=== PATIENT | male | born 1980 | race Caucasian/White ===

== ENCOUNTER 2020-05-18 23:14 | Emergency (ER) | payer OTHER ==
[~2020-05-18] VITALS: Ht 195.6 cm; Wt 120.5 kg
[2020-05-18] MEDS ORDERED: TOPROL XL 25MG25 MG PO (23:28)
[2020-05-18] MEDS ORDERED: HCTZ 25MG25 MG PO (23:28)
[2020-05-18] MEDS ORDERED: FENOFIBRATE160 MG PO (23:29)
[2020-05-18] MEDS ORDERED: COZAAR100 MG PO (23:29)
[2020-05-18] MEDS ORDERED: LEADER OMEPRAZO20 MG PO (23:30)
[2020-05-19 00:21] LABS: EOS # 0.2 (0.04-0.40); EOS % 2.7 % (0.0-4.0); HEMATOCRIT 50.5 % (42.0-52.0); HEMOGLOBIN 17.1 g/dL (13.5-18.0); LYMPH# 2.1 (1.50-4.00); MEAN CELL VOLUME 87 fl (78-100); MEAN CORPUSCULAR HEMOGLOBIN 30 pg (27-31); MEAN CORPUSCULAR HGB CONC 34 g/dL (33-37); MEAN PLATELET VOLUME 11.9 fl (7.4-10.4); MONO # 0.6 (0.20-0.80); NEU # 4.8 (1.40-6.50); PLATELET COUNT 147 K/mm3 (130-400); RED CELL DISTRIBUTION WIDTH 13.3 % (11.5-14.5); WHITE BLOOD COUNT 7.8 K/mm3 (4.8-10.8)
[2020-05-19 00:22] LABS: ALBUMIN 4.7 g/dL (3.5-5.0); SODIUM 143 mmol/L (136-145)
[2020-05-19 00:23] LABS: CALCIUM 9.6 mg/dL (8.3-10.5)
[2020-05-19 00:24] LABS: GLUCOSE 120 mg/dL (75-110); TOTAL PROTEIN 6.9 g/dL (6.4-8.3)
[2020-05-19 00:25] LABS: CARBON DIOXIDE 20 mmol/L (22-29)
[2020-05-19 00:26] LABS: TOTAL BILIRUBIN 0.4 mg/dL (0.2-1.2)
[2020-05-19 00:30] LABS: AST-SGOT 18 U/L (5-34)
[2020-05-19 00:31] LABS: ALT/SGPT 26 U/L (0-55)
[2020-05-19 00:55] LABS: TROPONIN-I < 0.03 ng/mL (<0.030)
[2020-05-19 02:52] VITALS: BP 136/90
== END 2020-05-19 02:52 | disposition short-term general hospital (02) ==
LOC: ED 23:14
PROVIDERS: Physician Assistant
DX: I48.92 Unspecified atrial flutter (principal); I10 Essential (primary) hypertension; Z88.8 Allergy status to other drugs, medicaments and biological substances
CPT/HCPCS: J1650; J7030

== ENCOUNTER 2024-05-03 09:33 | Emergency (ER) | payer OTHER ==
[~2024-05-03] VITALS: Ht 198.1 cm; Wt 118.2 kg
[~2024-05-03 09:33] MED LIST: COZAAR100 MG PO; FENOFIBRATE160 MG PO; HCTZ 25MG25 MG PO; LEADER OMEPRAZO20 MG PO; TOPROL XL 25MG25 MG PO
[2024-05-03 10:21] LABS: BASO # 0.03 K/mm3 (0.02-0.10); EOS # 0.07 K/mm3 (0.04-0.40); EOS % 1.5 % (0.0-4.0); HEMATOCRIT 49.1 % (42.0-52.0); LYMPH# 1.23 K/mm3 (1.50-4.00); MEAN CELL VOLUME 86 fl (78-100); MEAN CORPUSCULAR HEMOGLOBIN 30 pg (27-31); MEAN CORPUSCULAR HGB CONC 35 g/dL (33-37); MEAN PLATELET VOLUME 11.2 fl (7.4-10.4); MONO # 0.48 K/mm3 (0.20-0.80); NEU # 2.74 K/mm3 (1.40-6.50); PLATELET COUNT 135 K/mm3 (130-400); RED BLOOD COUNT 5.72 M/mm3 (4.20-5.60); RED CELL DISTRIBUTION WIDTH 12.6 % (11.5-14.5); WHITE BLOOD COUNT 4.6 K/mm3 (4.8-10.8)
[2024-05-03 10:24] LABS: ALBUMIN 4.6 g/dL (3.5-5.0)
[2024-05-03 10:25] LABS: CALCIUM 9.6 mg/dL (8.3-10.5)
[2024-05-03 10:26] LABS: TOTAL PROTEIN 6.6 g/dL (6.4-8.3)
[2024-05-03 10:28] LABS: TOTAL BILIRUBIN 0.9 mg/dL (0.2-1.2)
[2024-05-03 10:40] LABS: D-DIMER 0.19 mg/L FEU (0.15-0.50)
[2024-05-03] MEDS ORDERED: NS 1,000 ML IV SCH (11:00)
[2024-05-03 11:28] LABS: URINE COLOR YELLOW (YELLOW)
[2024-05-03 11:29] LABS: URINE APPEARANCE CLEAR (CLEAR); URINE BILIRUBIN NEGATIVE (NEGATIVE); URINE BLOOD NEGATIVE (NEGATIVE); URINE GLUCOSE NEGATIVE (NEGATIVE); URINE KETONE NEGATIVE (NEGATIVE); URINE LEUKOCYTE ESTERASE NEGATIVE (NEGATIVE); URINE NITRATE NEGATIVE (NEGATIVE); URINE PROTEIN(semi-quant) NEGATIVE (NEGATIVE); URINE WBC 0-1 /hpf (0-3)
[2024-05-03 12:10] VITALS: BP 129/90
== END 2024-05-03 12:10 | disposition home or self-care (01) ==
LOC: ED 09:33
PROVIDERS: Nurse Practitioner
DX: R42 Dizziness and giddiness (principal); R00.2 Palpitations; I10 Essential (primary) hypertension; Z79.899 Other long term (current) drug therapy
CPT/HCPCS: J7030